=== PATIENT | male | born 1950 | race Caucasian/White ===

== ENCOUNTER → 2016-11-09 | Outpatient (CLI) | payer OTHER | LOC: FIMAGING 06:51 | PROVIDERS: ATTEND Orthopaedic Surgery | DX: S83.242A Other tear of medial meniscus, current injury, left knee, initial encounter (principal); S83.282A Other tear of lateral meniscus, current injury, left knee, initial encounter; M25.462 Effusion, left knee; M71.22 Synovial cyst of popliteal space [Baker], left knee ==

== ENCOUNTER 2016-12-13 13:47 | Emergency (ER) | payer OTHER ==
[2016-12-13] MEDS ORDERED: MIDAZOLAM 2 MG/2 ML VIAL ONE (13:50)
[2016-12-13] MEDS ORDERED: LIDOCAINE 1% 300 MG/30 ML SDV ONE (13:50)
[2016-12-13] MEDS ORDERED: fentaNYL 100 MCG/2 ML INJ ONE (13:50)
[2016-12-13] MEDS ORDERED: IOPAMIDOL (ISOVUE-370) 150 ML BTL IV ONE (13:51)
[2016-12-13 13:56] LABS: % IMMATURE GRANULYOCYTES 0.4 % (0.0-1.1); ABSOLUTE IMMATURE GRANULOCYTES 0.04 10^3/uL (0.00-0.10); ADD DIFF? NO; ADD MORPH? NO; ADD SCAN? NO; ATYPICAL LYMPHOCYTE FLAG 10 (0-99); FRAGMENT RBC FLAG 0 (0-99); HEMATOCRIT 45.6 % (40.0-51.0); HEMOGLOBIN 14.9 g/dL (13.7-17.5); LEFT SHIFT FLG 0 (0-99); LIPEMIA HEMOLYSIS FLAG 80 (0-99); MEAN CELL HEMOGLOBIN 31.4 pg (27.9-34.1); MEAN CELL HEMOGLOBIN CONCENTR. 32.7 g/dL (32.4-36.7); MEAN PLATELET VOLUME 10.5 fL (8.7-11.7); PLATELET CLUMPS FLAG 10 (0-99); PLATELET COUNT 255 10^3/uL (150-400); RED BLOOD CELL COUNT 4.75 10^6/uL (4.40-6.38); RED CELL DISTRIBUTION WIDTH 12.8 % (11.5-15.2)
[2016-12-13 14:06] LABS: INR 1.02 (0.83-1.16); PROTIME(PATIENT) 13.3 SEC (12.0-15.0)
[2016-12-13 14:07] LABS: ANION GAP 15 mEq/L (8-16); APTT 26.9 SEC (23.0-38.0); CALCIUM 10.5 mg/dL (8.5-10.4); CARBON DIOXIDE 21 mEq/l (22-31); CHLORIDE 110 mEq/L (97-110); CREATININE 1.3 mg/dL (0.7-1.3); GLOMERULAR FILTRATION RATE 55; GLUCOSE 129 mg/dL (70-100); POTASSIUM 4.3 mEq/L (3.5-5.2); SODIUM 146 mEq/L (134-144)
[2016-12-13 14:19] VITALS: PULSE 40
[2016-12-13 14:19] LABS: TROPONIN I 0.648 ng/mL (0-0.034)
[2016-12-13] MEDS ORDERED: ETOMIDATE 20 MG/10 ML VIAL IVP ONE (14:21)
[2016-12-13] MEDS ORDERED: EPINEPHrine 1 MG/10 ML SYR IVP ONE (14:21)
[2016-12-13] MEDS ORDERED: ETOMIDATE 40 MG/20 ML INJ IVP ONE (14:21)
[2016-12-13] MEDS ORDERED: SUCCINYLCHOLINE CHLORIDE 200 MG/10 ML VIAL IVP ONE ×2 (14:21→14:23)
[2016-12-13] MEDS ORDERED: ATROPINE SULFATE 1 MG/10 ML SYR IVP ONE (14:21)
--- NOTE | 2016-12-13 14:38 | EDPHY ---
H & P HPI/ROS: CHIEF COMPLAINT: Cardiac Alert, cardiac arrest HISTORY OF PRESENT ILLNESS: Kenny is a 66 y/o male arriving emergently via EMS as a Cardiac Alert who went into cardiac arrest en route. The patient developed severe chest pain while golfing today with his brother. He was initially alert and oriented on EMS arrival, but vitals became unstable en route and EMS ultimately began CPR. Patient regained pulses and later consciousness after short round of CPR without medications or electricity. Patient is alert to verbal stimulus with a pulse and breathing spontaneously upon arrival here. 324mg PO aspirin administered by EMS. REVIEW OF SYSTEMS: Unable to obtain due to patient condition. - Medical/Surgical History PMH: Unknown - Social History Additional Social History: - Physical Exam Exam: General Appearance: opens eyes to verbal stimulus, ashen Eyes: Pupils equal, 4mm ENT, Mouth: Mucous membranes moist Neck: Normal inspection Respiratory: Lungs are clear to auscultation anteriorly Cardiovascular: Bradycardic Gastrointestinal: Abdomen is soft Neurological: Responds to verbal stimulus, moving extremities Skin: Cool, ashen, no visible trauma. Extremities: atraumatic Psychiatric: unable to assess Constitutional: Initial Vital Signs Heart Rate 40 L 12/13/16 13:47 O2 Delivery Mode Nasal Cannula O2 (L/minute) 4 Allergies/Adverse Reactions: AVOIDS FRUITS Allergy (Mild, Uncoded 03/11/13 15:51) SCRATCHY THROAT MELONS Allergy (Mild, Uncoded 03/11/13 15:51) SCRATCHY THROAT POLLENS Allergy (Mild, Uncoded 03/11/13 15:51) NASAL CONGESTION Home Medications: Medication Instructions Recorded *Pharmacist Completed 03/11/13 03/11/13 Psyllium Husk (with Sugar) 1 each PO DAILY 03/11/13 [Metamucil Packet] Medical Decision Making Procedures: Procedure: Rapid sequence intubation. Indication for the procedure was cardiac arrest. The patient was being ventilated with 100% oxygen by [facility]. The patient was given the following IV medications: 20mg IV Etomidate and 100mg IV succinylcholine. The patient was orally endotracheally intubated under direct visualization with a 7.5 ETT. Tracheal intubation was confirmed with misting on the tube; breath sounds were auscultated equally bilaterally; appropriate color change with [employer] CO2 detector. No follow-up chest X-ray performed. The procedure was performed by myself, Dr. Dejesus. ED Course/Re-evaluation: 1342: EMS updated us that patient is now in cardiac arrest. 1344: Dr. Hair, paper bundler, at bedside. 1346: RT at bedside. 1347: [facility] upon arrival. EMS reports patient was playing golf and developed sudden crushing chest pain. He was alert and oriented during initial contact. They administered 324mg PO aspirin. En route, they began to lose a BP and watched his rhythm become bradycardic. He arrested en route and they began CPR. After only a short period of compressions without medications his pulses returned and he became somewhat responsive. On initial assessment, he is ashen, but breathing spontaneously, and opens eyes to voice. Dr. Hair plans to take him directly to the pit laborer. Two large bore IVs were placed by EMS. 1348: Patient is bradycardic at 48 in apparent sinus rhythm on 3-lead. He is alert to verbal stimulus and mumbling. 1gm atropine ordered. 1349: Patient is now groaning and becoming less responsive. Deciding if we should intubate here prior to going to the pit laborer. ISTAT is being run. 1350: 0.5mg IV epinephrine administered. 1351: Patient is no longer breathing spontaneously. No carotid pulse. CPR initiated. Ventilation with BVM. 1352: Patient had purposeful movement almost immediately after CPR started and began reaching towards face as we were preparing to intubate. CPR stopped. No palpable pulses. V-tach on monitor. 1353: 20mg IV Etomidate, 100mg IV succinylcholine administered through left IV for RSI. CPR resumed. 1354: CPR paused. Shocked at 300J for Vfib. No pulses. CPR resumed. 1356: V-tach on monitor. Intubation in progress. CPR halted for a few seconds during intubation, then resumed. 300J shock administered. 1357: Patient's arrived and stated patient has a prior DNR (signed) does not want to be resuscitated. Dr. Hair and I discussed the situation with the patient's . She is unsure how to proceed. She agrees to continue resuscitation efforts for a short time. 1358: 1g IV atropine administered. 1359: CPR restarted. 1mg IV epinephrine administered. 1359: CPR paused. Shocked at 360J. CPR resumed. 1400: Possible femoral pulses. 1401: No consistent pulse confirmed. CPR paused. 360J shock administered. CPR immediately resumed. 1402: 1mg IV epi administered. CPR paused. 360J shock administered. CPR immediately resumed. 1403: 1mg IV epi administered. 1403: Organized rhythm appears to be sinus on monitor. 1404: Dr. Hair discussed patient's condition with the patient's . He would like to take the patient to the pit laborer. CPR paused for pulse check. 1405: states, "if he has no pulse please let him go." No pulses and no cardiac activity. Pupils fixed and dilated. 1406: Resuscitation efforts discontinued and pt pronounced at 14:06. Critical Care Time: This patient utilized 35 minutes of critical care time exclusive of unbundled procedures. - Data Points Laboratory Results: Laboratory Results 12/13/16 13:45 12/13/16 13:45 Medications Given: Discontinued Medications Atropine Sulfate (Atropine 1 Mg/10 Ml Syringe) 2 mg IVP EDNOW ONE Stop: 12/13/16 14:22 Last Admin: 12/13/16 13:49 Dose: 2 mg Epinephrine HCl (Epinephrine) 4 mg IVP EDNOW ONE Stop: 12/13/16 14:22 Last Admin: 12/13/16 13:50 Dose: 4.5 mg Etomidate (Etomidate) 20 mg IVP EDNOW ONE Stop: 12/13/16 14:22 Last Admin: 12/13/16 13:53 Dose: 20 mg Etomidate (Etomidate) 20 mg IVP EDNOW ONE Stop: 12/13/16 14:22 Last Admin: 12/13/16 13:55 Dose: 20 mg Succinylcholine Chloride (Quelicin) 100 mg IVP EDNOW ONE Stop: 12/13/16 14:22 Last Admin: 12/13/16 13:54 Dose: 100 mg Succinylcholine Chloride (Quelicin) 100 mg IVP EDNOW ONE Stop: 12/13/16 14:24 Last Admin: 12/13/16 13:55 Dose: 100 mg Departure - Departure Disposition: Clinical Impression: Cardiac arrest, STEMI (ST elevation myocardial infarction) Condition: Critical Referrals: Patient,NotPresent [Primary Care Provider] - As per Instructions Report Scribed for: Theodora Dejesus Report Scribed by: Sara Mojica Date of Report: 12/13/16 Time of Report: 14:40 Physician Review and Approval Statement: 12/13/16 14:40 Portions of this note were transcribed by a medical sales associate. I personally performed a history, physical exam, medical decision making, and confirmed accuracy of information the transcribed note.
== END 2016-12-13 16:55 | disposition expired ==
LOC: EDUNIT#
PROC: 0BH17EZ Insertion of Endotracheal Airway into Trachea, Via Natural or Artificial Opening (ICD-10-PCS; principal; 2016-12-13)
DX: I46.9 Cardiac arrest, cause unspecified (principal); I21.3 ST elevation (STEMI) myocardial infarction of unspecified site
CPT/HCPCS: 82947-QW; 96374; J0330; J2250; J3010; Q9967